=== PATIENT | female | born 2000 | race Caucasian/White ===

== ENCOUNTER 2019-08-15 18:57 | Emergency (ER) | payer MEDICAID, OTHER ==
--- NOTE | 2019-08-15 20:13 | ED ---
Psychiatric Complaint - HPI Summary HPI Summary: Level 5 Caveat AMS This patient is a 18 year old F presenting to [facility] with a chief complaint of suicidal intentions since prior to arrival. Pt tried to hurt herself, and then she called 911. Pt has had similar thought previously and has tried to hurt herself previously. She wanted to stab herself, and she has previously tried stabbing herself with a knife. Pt takes medication, but she does not remember medications, PMHx and allergies. Pt reports throwing up today. Caregiver is in the waiting room. Pt is from a [facility]. - History Of Current Complaint Chief Complaint: EDSuicidal Time Seen by Provider: 08/15/19 19:15 Hx Obtained From: Patient Onset/Duration: Sudden Onset Timing: Intermittent Episode Lasting Aggravating Factor(s): Nothing Alleviating Factor(s): Nothing Has Suicidal: Reports: Thoughts, With A Plan, Has Prior Attempt(s) - Allergies/Home Medications Allergies/Adverse Reactions: Allergies Allergy/AdvReac Type Severity Reaction Status Date / Time No Known Allergies Allergy Verified 08/15/19 22:35 Home Medications: Home Medications ARIPiprazole TAB* 2 mg PO QPM 08/15/19 [History Confirmed 08/15/19] Abilify TAB* 5 mg PO QPM 08/15/19 [History Confirmed 08/15/19] Depakote ER TAB(*) 500 mg PO BID 08/15/19 [History Confirmed 08/15/19] LORazepam 1 mg PO BEDTIME 08/15/19 [History Confirmed 08/15/19] Prazosin CAP* 1 mg PO BEDTIME 08/15/19 [History Confirmed 08/15/19] Sprintec 28 Day Tablet 1 tab PO DAILY 08/15/19 [History Confirmed 08/15/19] Tylenol 650 mg PO Q4HR PRN 08/15/19 [History Confirmed 08/15/19] guanFACINE TAB* 1 mg PO BID 08/15/19 [History Confirmed 08/15/19] risperiDONE 1 mg PO DAILY 08/15/19 [History Confirmed 08/15/19] PMH/Surg Hx/FS Hx/Imm Hx Previously Healthy: No - Level 5 Caveat AMS Sensory History: Denies: Hx Legally Blind EENT History: Denies: Hx Deafness - Surgical History Surgical History: Unable to Obtain/Confirm - Level 5 Caveat AMS Infectious Disease History: No Infectious Disease History: Denies: Traveled Outside the [place] in Last 30 Days - Family History Known Family History: Positive: Unknown - Level 5 Caveat AMS - Social History Occupation: Unemployed Lives: Senior Living - Additional Comments History Additional Comments: Level 5 Caveat AMS Review of Systems Positive: Other - Suicidal All Other Systems Reviewed And Are Negative: No - Comments Additional Review of Systems Comments: Level 5 Caveat AMS Physical Exam - Summary Physical Exam Summary: General: Well-developed, Well-nourished female. No acute distress. HEENT: Normocephalic, Atraumatic. Eyes: Conjuctiva normal, PERRL. Oropharynx: Clear, mucous membranes moist, (-) exudates. Neck: Soft, FROM, (-) lymphadenopathy, (-) thyromegaly, (-) JVD. Cardiovascular: Normal sinus rhythm, (-) murmur. Lungs: Clear to auscultation bilaterally (-) wheezes, (-) rales, (-) rhonchi. Abdomen: Soft, non-tender, non-distended, (-) organomegaly, normal bowel sounds. Back: (-) CVA tenderness Extremities: No edema. Skin: Warm, dry, (-) rash. Neuro: Alert and oriented x3, no focal deficits, poor memory. Psychiatric: Mood normal, affect flat/odd. Level 5 Caveat AMS Triage Information Reviewed: Yes Vital Signs On Initial Exam: Initial Vitals Temp Pulse Resp BP Pulse Ox 99.5 F 80 16 132/86 100 08/15/19 19:01 08/15/19 19:01 08/15/19 19:01 08/15/19 19:01 08/15/19 19:01 Vital Signs Reviewed: Yes Procedures - Sedation Patient Received Moderate/Deep Sedation with Procedure: No Diagnostics - Vital Signs Vital Signs Temp Pulse Resp BP Pulse Ox 08/15/19 19:01 99.5 F 80 16 132/86 100 - Laboratory Result Diagrams: 08/15/19 20:59 08/15/19 20:59 Lab Statement: Any lab studies that have been ordered have been reviewed, and results considered in the medical decision making process. Re-Evaluation - Re-Evaluation First Eval Re-Evaluation Time: 19:51 Comment: Pt was medically cleared. Course/Dx - Course Course Of Treatment: 18-year-old female with learning disability from [facility] presents for mental health evaluation. She states she has been having thoughts of hurting herself. She stated she wanted to take a knife and stab herself. She has had these thoughts before. Patient is poor historian. Limited insight. Patient does states she doesn't want to go back to where she lives and wants to stay here. Patient is medically cleared. Mental health evaluation is completed. Patient is deemed safe for discharge. Discharged back to [facility] with her caregiver. Follow up with outpatient counseling. They'll observe for any worsening symptoms. - Differential Dx/Clinical Impression Provider Diagnosis: Mood disorder - Physician Notifications Discussed Care Of Patient With: Mental Health Liner Assembler Time Discussed With Above Provider: 01:51 Instructed by Provider To: Other - Pt will be discharged Discharge ED - Sign-Out/Discharge Documenting (check all that apply): Patient Departure - Discharge - Discharge Plan Condition: Stable Disposition: HOME Referrals: No Primary Care Phys,NOPCP [Primary Care Provider] - - Billing Disposition and Condition Condition: STABLE Disposition: Home - Attestation Statements Document Initiated by Crisibe: Yes Documenting Scribe: Robyn Waldrop Provider For Whom Ozzie is Documenting (Include Credential): Dr. Iram Morris MD Scribe Attestation: Robyn Pickard scribed for Dr. Iram Morris MD on 08/19/19 at 2000. Scribe Documentation Reviewed: Yes Provider Attestation: The documentation as recorded by the Robyn doll accurately reflects the service I personally performed and the decisions made by me, Dr. Iram Morris MD Status of Scribe Document: Viewed
[2019-08-15 21:07] LABS: ABS Eosinophils 0.2 10^3/ul (0-0.6); ABS Lymphocytes 2.4 10^3/ul (1.0-4.8); ABS Monocytes 0.8 10^3/ul (0-0.8); ABS Neutrophils 5.4 10^3/ul (1.5-7.7); Eosinophil % 1.7 %; Hematocrit 33 % (35-47); Hemoglobin 11.7 g/dL (12.0-16.0); Lymphocyte % 27.3 %; Mean Corpuscular HGB Conc 36 g/dL (31-36); Mean Corpuscular Hemoglobin 33 pg (27-31); Mean Corpuscular Volume 92 fL (80-97); Nucleated Red Blood Cells % 0.1; Platelet Count 271 10^3/uL (150-450); Red Cell Distribution Width 12 % (10-15); White Blood Count 8.8 10^3/uL (3.5-10.8)
[2019-08-15 21:15] LABS: Urine Appearance Clear; Urine Bilirubin Negative (Negative); Urine Blood Negative (Negative); Urine Color Straw; Urine Glucose Negative (Negative); Urine Ketones Negative (Negative); Urine Nitrite Negative (Negative); Urine Protein Negative (Negative); Urine Specific Gravity 1.008 (1.010-1.030); Urine Urobilinogen Negative (Negative)
[2019-08-15 21:25] LABS: ALT 7 U/L (7-52); AST 14 U/L (13-39); Albumin 3.9 g/dL (3.2-5.2); Albumin/Globulin Ratio 1.3 (1-3); Alkaline Phosphatase 53 U/L (34-104); Anion Gap 8 mmol/L (2-11); BUN/Creatinine Ratio 18.2 (8-20); Blood Urea Nitrogen 10 mg/dL (6-24); CO2 Carbon Dioxide 25 mmol/L (22-32); Calcium 9.4 mg/dL (8.6-10.3); Chloride 104 mmol/L (101-111); EGFR African American 172.3 (>60); EGFR Non-African American 142.4 (>60); Glucose 88 mg/dL (70-100); Sodium 137 mmol/L (135-145); Total Protein 6.9 g/dL (6.4-8.9)
[2019-08-15 21:32] LABS: HCG Pregnancy < 0.60 mIU/mL
[2019-08-15 21:33] LABS: Urine Benzodiazepine Screen None Detected (None Detect); Urine Opiates Screen None Detected (None Detect)
[2019-08-15 22:17] LABS: Acetaminophen < 15 mcg/mL; Alcohol < 10 mg/dL (<10); Salicylate < 2.50 mg/dL (<30)
[2019-08-15 22:33] LABS: TSH (Thyroid Stimulating Horm) 3.09 mcIU/mL (0.34-5.60)
[2019-08-16 02:32] VITALS: BP 127/85
== END 2019-08-16 02:20 | disposition home or self-care (01) ==
LOC: ED 18:57
DX: F39 Unspecified mood [affective] disorder (principal); Z79.899 Other long term (current) drug therapy
CPT/HCPCS: 36415; 80053; 80307; 80320; 80329; 81003; 84443; 84702; 85025; 99285; G0480

== ENCOUNTER 2019-08-23 22:36 | Emergency (ER) | payer OTHER ==
--- NOTE | 2019-08-23 22:51 | ED ---
Medical Screening - HPI Summary HPI Summary: Patient brought 941 from [facility] for SI. Stated to staff she wanted to hang herself. Patient states she was angry at staff this evening. Denies any other symptoms, pain or injury. Denies any actual attempt to harm herself prior to arrival in the ED. Denies EtOH or recreational drug use. - History of Current Complaint Chief Complaint: EDMentalHealth Stated Complaint: 941/DIZZINESS PER POLICE Time Seen by Provider: 08/23/19 22:48 Onset/Duration: Started Minutes Ago Severity: moderate PMH/Surg Hx/FS Hx/Imm Hx Endocrine/Hematology History: Denies: Hx Anticoagulant Therapy Cardiovascular History: Denies: Hx Pacemaker/ICD History: Denies: Hx Dialysis Sensory History: Denies: Hx Legally Blind, Hx Deafness Opthamlomology History: Denies: Hx Eye Prosthesis, Hx Legally Blind EENT History: Denies: Hx Auditory Problems Neurological History: Denies: Hx Dementia Psychiatric History: Reports: Hx Bipolar Disorder Denies: Hx Eating Disorder, Hx Depression, Hx Post Traumatic Stress Disorder , Hx Schizophrenia, Hx Suicide Attempt Infectious Disease History: No Infectious Disease History: Denies: Traveled Outside the [place] in Last 30 Days - Family History Known Family History: Positive: Unknown - Level 5 Caveat AMS - Social History Alcohol Use: None Substance Use Type: Reports: None Smoking Status (MU): Never Smoked Tobacco Review of Systems Constitutional: Negative Eyes: Negative ENT: Negative Cardiovascular: Negative Respiratory: Negative Gastrointestinal: Negative Genitourinary: Negative Musculoskeletal: Negative Skin: Negative Neurological: Negative Psychological: Normal All Other Systems Reviewed And Are Negative: Yes Physical Exam Triage Information Reviewed: Yes Vital Signs On Initial Exam: Initial Vitals Temp Pulse Resp BP Pulse Ox 99.3 F 96 18 122/74 99 08/23/19 22:37 08/23/19 22:37 08/23/19 22:37 08/23/19 22:37 08/23/19 22:37 Vital Signs Reviewed: Yes Appearance: Positive: Well-Appearing Skin: Positive: Warm Head/Face: Positive: Normal Head/Face Inspection Eyes: Positive: Normal Neck: Positive: Supple Respiratory/Lung Sounds: Positive: Clear to Auscultation Cardiovascular: Positive: Normal Abdomen Description: Positive: Nontender Musculoskeletal: Positive: Normal Neurological: Positive: Normal Psychiatric: Positive: Normal AVPU Assessment: Alert - Eve Coma Scale Best Eye Response: 4 - Spontaneous Best Motor Response: 6 - Obeys Commands Best Verbal Response: 5 - Oriented Coma Scale Total: 15 Procedures - Sedation Patient Received Moderate/Deep Sedation with Procedure: No Diagnostics - Vital Signs Vital Signs Temp Pulse Resp BP Pulse Ox 08/23/19 22:37 99.3 F 96 18 122/74 99 - Laboratory Result Diagrams: 08/23/19 23:17 08/23/19 23:17 Lab Statement: Any lab studies that have been ordered have been reviewed, and results considered in the medical decision making process. Course/Dx - Course Course Of Treatment: Patient brought 941 from [facility] for SI. Stated to staff she wanted to hang herself. Patient states she was angry at staff this evening. Denies any other symptoms, pain or injury. Denies any actual attempt to harm herself prior to arrival in the ED. Denies EtOH or recreational drug use. Vital signs within normal limits. Labs unremarkable. Mental health evaluation pending. - Diagnoses Provider Diagnoses: Mood disorder Discharge ED - Sign-Out/Discharge Documenting (check all that apply): Sign-Out Patient Signing out patient TO: Harjit Kaufman - Discharge Plan Condition: Stable Disposition: HOME Referrals: No Primary Care Phys,NOPCP [Primary Care Provider] - - Billing Disposition and Condition Condition: STABLE Disposition: Home
[2019-08-23 23:32] LABS: ABS Eosinophils 0.2 10^3/ul (0-0.6); ABS Lymphocytes 2.6 10^3/ul (1.0-4.8); ABS Monocytes 0.9 10^3/ul (0-0.8); ABS Neutrophils 5.4 10^3/ul (1.5-7.7); Eosinophil % 1.8 %; Hematocrit 34 % (35-47); Hemoglobin 12.3 g/dL (12.0-16.0); Lymphocyte % 29.2 %; Mean Corpuscular HGB Conc 37 g/dL (31-36); Mean Corpuscular Hemoglobin 34 pg (27-31); Mean Corpuscular Volume 93 fL (80-97); Nucleated Red Blood Cells % 0.1; Platelet Count 295 10^3/uL (150-450); Red Blood Count 3.63 10^6 /uL (3.70-4.87); Red Cell Distribution Width 12 % (10-15); White Blood Count 9.1 10^3/uL (3.5-10.8)
[2019-08-23 23:47] LABS: ALT 9 U/L (7-52); AST 14 U/L (13-39); Albumin 3.9 g/dL (3.2-5.2); Albumin/Globulin Ratio 1.3 (1-3); Alkaline Phosphatase 57 U/L (34-104); Anion Gap 9 mmol/L (2-11); Blood Urea Nitrogen 12 mg/dL (6-24); CO2 Carbon Dioxide 24 mmol/L (22-32); Calcium 9.3 mg/dL (8.6-10.3); Chloride 105 mmol/L (101-111); EGFR African American 155.8 (>60); EGFR Non-African American 128.8 (>60); Globulin 3.1 g/dL (2-4); Glucose 89 mg/dL (70-100); Potassium 3.9 mmol/L (3.5-5.0); Sodium 138 mmol/L (135-145)
[2019-08-24 00:03] LABS: Acetaminophen < 15 mcg/mL; Alcohol < 10 mg/dL (<10); Salicylate < 2.50 mg/dL (<30)
[2019-08-24 00:18] LABS: TSH (Thyroid Stimulating Horm) 2.28 mcIU/mL (0.34-5.60)
--- NOTE | 2019-08-24 02:49 | ED ---
Progress - Progress Note Progress Note: Patient signed out from DUGLAS Ceballos, upon shift change 08/24/19 02:30 awaiting MHE and pending disposition. Course/Dx - Course Course Of Treatment: MHE completed. Psychiatric sole tacker reviewed case with Dr. Vargas. They recommend discharge. The patient will be discharged. - Diagnoses Provider Diagnoses: Mood disorder - Provider Notifications Time Discussed With Above Provider: 03:27 Discharge ED - Sign-Out/Discharge Documenting (check all that apply): Patient Departure - d/c - Discharge Plan Condition: Stable Disposition: HOME Referrals: No Primary Care Phys,NOPCP [Primary Care Provider] - - Billing Disposition and Condition Condition: STABLE Disposition: Home - Attestation Statements Document Initiated by Scribe: Yes Documenting Scribe: Rachel Mayorga Provider For Whom Ozzie is Documenting (Include Credential): Harjit Kaufman MD Scribstorm Attestation: Rachel Pickard, scribed for Harjit Kaufman MD on 08/24/19 at 0545. Scribe Documentation Reviewed: Yes Provider Attestation: The documentation as recorded by the Rachel doll accurately reflects the service I personally performed and the decisions made by Harjit triplett MD Status of Scribe Document: Viewed
[2019-08-24 04:41] VITALS: BP 101/57
== END 2019-08-24 03:20 | disposition home or self-care (01) ==
LOC: ED 22:36
DX: F39 Unspecified mood [affective] disorder (principal); R45.851 Suicidal ideations; Z79.899 Other long term (current) drug therapy
CPT/HCPCS: 36415; 80053; 80320; 80329; 84443; 85025; 99285; G0480

== ENCOUNTER 2019-09-12 17:52 | Emergency (ER) | payer OTHER ==
--- NOTE | 2019-09-12 18:11 | ED ---
Psychiatric Complaint - HPI Summary HPI Summary: The patient is a 19 y/o F brought in by police to [facility] with a chief complaint of suicidality today. She threatened to cut herself after someone agitated her at the living facility. She reports that she has been feeling like she is going to commit suicide, but she does not state a plan in the ED. She is medication- compliant. She also notes right thigh pain secondary to a fall she had at home. She has been unable to ambulate on the RLE. No pain in LLE. She endorses nausea now from the ride here. PMHx: bipolar disorder. Nonsmoker, no EtOH, no substance use. Medications reviewed. Allergies noted. - History Of Current Complaint Chief Complaint: EDSuicidal Time Seen by Provider: 09/12/19 18:00 Hx Obtained From: Patient Onset/Duration: Still Present Severity Initially: Moderate Severity Currently: Moderate Character: Depressed, Frustrated Aggravating Factor(s): Recent Stress Alleviating Factor(s): Nothing Related History: Positive For: Prior Psychiatric Issues - bipolar disorder Has Suicidal: Reports: Thoughts - Allergies/Home Medications Allergies/Adverse Reactions: Allergies Allergy/AdvReac Type Severity Reaction Status Date / Time No Known Allergies Allergy Verified 08/23/19 22:42 PMH/Surg Hx/FS Hx/Imm Hx Endocrine/Hematology History: Denies: Hx Anticoagulant Therapy Cardiovascular History: Denies: Hx Pacemaker/ICD History: Denies: Hx Dialysis Sensory History: Denies: Hx Eye Prosthesis, Hx Legally Blind, Hx Deafness Opthamlomology History: Denies: Hx Eye Prosthesis, Hx Legally Blind Neurological History: Denies: Hx Dementia Psychiatric History: Reports: Hx Bipolar Disorder Denies: Hx Eating Disorder, Hx Depression, Hx Post Traumatic Stress Disorder , Hx Schizophrenia, Hx Suicide Attempt Infectious Disease History: No Infectious Disease History: Denies: Traveled Outside the [place] in Last 30 Days - Family History Known Family History: Negative: Diabetes - Social History Alcohol Use: None Hx Substance Use: No Substance Use Type: Reports: None Substance Use Comment - Amount & Last Used: n/a Hx Tobacco Use: No Smoking Status (MU): Never Smoked Tobacco Review of Systems Positive: Myalgia - right thigh Positive: Depressed, Other - SI All Other Systems Reviewed And Are Negative: Yes Physical Exam - Summary Physical Exam Summary: Constitutional: Well-developed, Well-nourished, Alert. (-) Distressed Skin: Warm, Dry HENT: Normocephalic; Atraumatic Eyes: Conjunctiva normal Neck: Musculoskeletal ROM normal neck. (-) JVD, (-) Stridor, (-) Nuchal rigidity Cardio: Rhythm regular, rate normal, Heart sounds normal; Intact distal pulses; Radial pulses are 2+ and symmetric. (-) Murmur Pulmonary/Chest wall: Effort normal. (-) Respiratory distress, (-) Wheezes, (-) Rales Abd: Soft, (-) tenderness, (-) Distension, (-) Guarding, (-) Rebound Musculoskeletal: (-) Edema Lymph: (-) Cervical adenopathy Neuro: Alert, Oriented x3 Psych: Mood and affect Normal Triage Information Reviewed: Yes Vital Signs On Initial Exam: Initial Vitals Temp Pulse Resp BP Pulse Ox 98.0 F 84 18 130/75 99 09/12/19 17:53 09/12/19 17:53 09/12/19 17:53 09/12/19 17:53 09/12/19 17:53 Vital Signs Reviewed: Yes Procedures - Sedation Patient Received Moderate/Deep Sedation with Procedure: No Diagnostics - Vital Signs Vital Signs Temp Pulse Resp BP Pulse Ox 09/12/19 17:53 98.0 F 84 18 130/75 99 - Laboratory Lab Statement: Any lab studies that have been ordered have been reviewed, and results considered in the medical decision making process. - Radiology R Knee XR Radiology Interpretation Completed By: ED Physician Summary of Radiographic Findings: No acute fracture. ED physician has reviewed and interpreted this report. Pending official read. R Femur XR Radiology Interpretation Completed By: ED Physician Summary of Radiographic Findings: No acute fracture. ED physician has reviewed and interpreted this report. Pending official read. Re-Evaluation - Re-Evaluation First Eval Re-Evaluation Time: 18:15 Comment: Patient is medically clear for MHE. Second Eval Re-Evaluation Time: 20:42 Comment: Discussed results with patient including normal XRays. Patient ambulated Course/Dx - Course Course Of Treatment: 19 y/o F w hx BPD p/w SI and R leg pain. - PE w mild R knee/thigh tenderness. Will check films as patient doesnt want to ambulate. - team to evaluate. - Differential Dx/Clinical Impression Provider Diagnosis: Mood disorder, Thigh pain - Physician Notifications Discussed Care Of Patient With: Napoleon Swartz - psychiatry Time Discussed With Above Provider: 20:30 Instructed by Provider To: Other - Dr. Swartz has evaluated the patient and has determined that she is able to be discharged home. Discharge ED - Sign-Out/Discharge Documenting (check all that apply): Patient Departure - Patient will be discharged by [facility]. - Discharge Plan Condition: Stable Disposition: HOME Patient Education Materials: Mood Disorders (ED), Musculoskeletal Pain (ED) Referrals: No Primary Care Phys,NOPCP [Primary Care Provider] - Additional Instructions: Your Xray did not show any acute fractures. - Billing Disposition and Condition Condition: STABLE Disposition: Home - Attestation Statements Document Initiated by Ozzie: Yes Documenting Scribe: Shanthi Curry Provider For Whom Ozzie is Documenting (Include Credential): Dr. Carlos Palma MD Scribe Attestation: Shanthi Pickard scribed for Dr. Carlos Palma MD on 09/13/19 at 1003. Scribe Documentation Reviewed: Yes Provider Attestation: The documentation as recorded by the Shanthi doll accurately reflects the service I personally performed and the decisions made by me, Dr. Carlos Palma MD Status of Scribe Document: Viewed
[2019-09-12] MEDS ORDERED: Acetaminophen TAB* 325 MG PO ONE (20:36)
[2019-09-12] MEDS ORDERED: Divalproex DR TAB(*) 500 MG PO ONE (20:44)
[2019-09-12] MEDS ORDERED: ARIPiprazole TAB* 5 MG PO ONE (21:00)
[2019-09-12 21:12] VITALS: BP 116/74
== END 2019-09-12 21:11 | disposition home or self-care (01) ==
LOC: ED 17:52
DX: F39 Unspecified mood [affective] disorder (principal); F32.9 Major depressive disorder, single episode, unspecified; M79.651 Pain in right thigh
CPT/HCPCS: 99285; A9270-GY

== ENCOUNTER 2019-10-17 17:21 | Emergency (ER) | payer OTHER ==
[2019-10-17 18:32] LABS: ABS Eosinophils 0.2 10^3/ul (0-0.6); ABS Lymphocytes 2.3 10^3/ul (1.0-4.8); ABS Monocytes 0.6 10^3/ul (0-0.8); ABS Neutrophils 3.4 10^3/ul (1.5-7.7); Eosinophil % 2.7 %; Hematocrit 36 % (35-47); Hemoglobin 12.5 g/dL (12.0-16.0); Lymphocyte % 35.6 %; Mean Corpuscular HGB Conc 35 g/dL (31-36); Mean Corpuscular Hemoglobin 33 pg (27-31); Mean Corpuscular Volume 94 fL (80-97); Mean Platelet Volume 8.3 fL (7.4-10.4); Nucleated Red Blood Cells % 0.1; Platelet Count 237 10^3/uL (150-450); Red Blood Count 3.81 10^6 /uL (3.70-4.87); Red Cell Distribution Width 13 % (10-15); White Blood Count 6.6 10^3/uL (3.5-10.8)
[2019-10-17 18:50] LABS: ALT 9 U/L (7-52); AST 14 U/L (13-39); Albumin 3.9 g/dL (3.2-5.2); Albumin/Globulin Ratio 1.3 (1-3); Alkaline Phosphatase 51 U/L (34-104); Anion Gap 6 mmol/L (2-11); Blood Urea Nitrogen 11 mg/dL (6-24); C Reactive Protein 3.68 mg/L (<8.01); CO2 Carbon Dioxide 26 mmol/L (22-32); Calcium 8.9 mg/dL (8.6-10.3); Chloride 109 mmol/L (101-111); EGFR African American 160.4 (>60); EGFR Non-African American 132.5 (>60); Globulin 2.9 g/dL (2-4); Glucose 99 mg/dL (70-100); Potassium 3.6 mmol/L (3.5-5.0); Sodium 141 mmol/L (135-145); Total Protein 6.8 g/dL (6.4-8.9)
[2019-10-17 18:57] LABS: HCG Pregnancy < 0.60 mIU/mL
[2019-10-17] MEDS ORDERED: Ketorolac INJ* 30 MG/ML 1 ML VIAL IM ONE (19:38)
--- NOTE | 2019-10-17 19:41 | ED ---
Head Injury - HPI Summary HPI Summary: 19 year old female presents with head injury today. She says she hit her head on a chair. She denies LOC or change in vision. Denies any dizziness. She admits to some nausea but no vomiting. she is not on any blood thinners. Denies any neck pain. States that when she with EMS she developed chest pain. pain is located in the center chest. States it is sharp in nature. chest pain is reproducible. No shortness of breath. No recent illness. No cough. No fevers. - History Of Current Complaint Chief Complaint: EDHeadInjury Stated Complaint: FALL/HEAD INJURY PER PT Time Seen by Provider: 10/17/19 17:40 Pain Intensity: 10 - Allergies/Home Medications Allergies/Adverse Reactions: Allergies Allergy/AdvReac Type Severity Reaction Status Date / Time No Known Allergies Allergy Verified 08/23/19 22:42 PMH/Surg Hx/FS Hx/Imm Hx Endocrine/Hematology History: Denies: Hx Anticoagulant Therapy, Hx Diabetes Cardiovascular History: Denies: Hx Hypercholesterolemia, Hx Hypertension, Hx Pacemaker/ICD History: Denies: Hx Dialysis, Hx Renal Disease Sensory History: Denies: Hx Eye Prosthesis, Hx Legally Blind, Hx Deafness Opthamlomology History: Denies: Hx Eye Prosthesis, Hx Legally Blind Neurological History: Denies: Hx Dementia Psychiatric History: Reports: Hx Bipolar Disorder Denies: Hx Eating Disorder, Hx Depression, Hx Post Traumatic Stress Disorder , Hx Schizophrenia, Hx Suicide Attempt - Surgical History Surgery Procedure, Year, and Place: None Infectious Disease History: No Infectious Disease History: Denies: Traveled Outside the [place] in Last 30 Days - Family History Known Family History: Positive: Unknown - Level 5 Caveat AMS Negative: Diabetes - Social History Alcohol Use: None Hx Substance Use: No Substance Use Type: Reports: None Substance Use Comment - Amount & Last Used: n/a Hx Tobacco Use: No Smoking Status (MU): Never Smoked Tobacco Review of Systems Negative: Fever Positive: Chest Pain Negative: Shortness Of Breath Positive: Nausea. Negative: Vomiting Positive: Headache All Other Systems Reviewed And Are Negative: Yes Physical Exam Triage Information Reviewed: Yes Vital Signs On Initial Exam: Initial Vitals Temp Pulse Resp BP Pulse Ox 98.6 F 72 16 130/89 97 10/17/19 17:24 10/17/19 17:24 10/17/19 17:24 10/17/19 17:24 10/17/19 17:24 Vital Signs Reviewed: Yes Appearance: Positive: Well-Appearing Skin: Positive: Warm, Dry Head/Face: Positive: Normal Head/Face Inspection, Other - no step off, racoon eyes, velasquez sign Eyes: Positive: Normal, EOMI, DEEPIKA, Conjunctiva Clear ENT: Positive: Pharynx normal, TMs normal Neck: Positive: Other: - nontender neck Respiratory/Lung Sounds: Positive: Clear to Auscultation, Breath Sounds Present , Other - reproducible chest pain Cardiovascular: Positive: Normal, RRR Abdomen Description: Positive: Nontender, Soft Bowel Sounds: Positive: Present Musculoskeletal: Positive: Normal Neurological: Positive: Normal Psychiatric: Positive: Normal Procedures - Sedation Patient Received Moderate/Deep Sedation with Procedure: No Diagnostics - Vital Signs Vital Signs Temp Pulse Resp BP Pulse Ox 10/17/19 18:43 68 18 130/78 99 10/17/19 18:15 60 20 99 10/17/19 18:13 72 22 136/84 98 10/17/19 17:24 98.6 F 72 16 130/89 97 - Laboratory Lab Results: Lab Results 10/17/19 10/17/19 10/17/19 Range/Units 18:22 18:22 18:22 WBC 6.6 (3.5-10.8) 10^3/uL RBC 3.81 (3.70-4.87) 10^6 /uL Hgb 12.5 (12.0-16.0) g/dL Hct 36 (35-47) % MCV 94 (80-97) fL MCH 33 H (27-31) pg MCHC 35 (31-36) g/dL RDW 13 (10-15) % Plt Count 237 (150-450) 10^3/uL MPV 8.3 (7.4-10.4) fL Neut % (Auto) 52.3 % Lymph % (Auto) 35.6 % Meagher % (Auto) 8.8 % Eos % (Auto) 2.7 % Baso % (Auto) 0.6 % Absolute Neuts (auto) 3.4 (1.5-7.7) 10^3/ul Absolute Lymphs (auto) 2.3 (1.0-4.8) 10^3/ul Absolute Monos (auto) 0.6 (0-0.8) 10^3/ul Absolute Eos (auto) 0.2 (0-0.6) 10^3/ul Absolute Basos (auto) 0.0 (0-0.2) 10^3/ul Absolute Nucleated RBC 0.0 10^3/ul Nucleated RBC % 0.1 Sodium 141 (135-145) mmol/L Potassium 3.6 (3.5-5.0) mmol/L Chloride 109 (101-111) mmol/L Carbon Dioxide 26 (22-32) mmol/L Anion Gap 6 (2-11) mmol/L BUN 11 (6-24) mg/dL Creatinine 0.58 (0.51-0.95) mg/dL Est GFR ( Amer) 160.4 (>60) Est GFR (Non-Af Amer) 132.5 (>60) BUN/Creatinine Ratio 19.0 (8-20) Glucose 99 (70-100) mg/dL Lactic Acid 1.1 (0.5-2.0) mmol/L Calcium 8.9 (8.6-10.3) mg/dL Total Bilirubin 0.20 (0.2-1.0) mg/dL AST 14 (13-39) U/L ALT 9 (7-52) U/L Alkaline Phosphatase 51 (34-104) U/L Troponin I 0.00 (<0.03) ng/mL C-Reactive Protein 3.68 (<8.01) mg/L Total Protein 6.8 (6.4-8.9) g/dL Albumin 3.9 (3.2-5.2) g/dL Globulin 2.9 (2-4) g/dL Albumin/Globulin Ratio 1.3 (1-3) Beta HCG, Quant < 0.60 mIU/mL Result Diagrams: 10/17/19 18:22 10/17/19 18:22 Lab Statement: Any lab studies that have been ordered have been reviewed, and results considered in the medical decision making process. - Radiology chest Radiology Interpretation Completed By: ED Physician Summary of Radiographic Findings: no active disease - EKG No standard instances Cardiac Rate: NL EKG Rhythm: Sinus Rhythm Summary of EKG Findings: sinus arrhythmia Re-Evaluation - Re-Evaluation First Eval Comment: when discussed going home patient became upset Head Injury Course/Dx Course Of Treatment: 19 year old female presents with head injury today. She says she hit her head on a chair. She denies LOC or change in vision. Denies any dizziness. She admits to some nausea but no vomiting. she is not on any blood thinners. Denies any neck pain. States that when she with EMS she developed chest pain. pain is located in the center chest. States it is sharp in nature. chest pain is reproducible. No shortness of breath. No recent illness. No cough. No fevers. On exam has normal neuro exam. No neuro deficits noted. according to [place] rules does not need any head imaging. reproducible chest pain. EKG shows sinus arrhythmia. Troponins zero. Gave Toradol. Will have follow with primary. Patient understands and agrees with the plan. - Diagnoses Differential Diagnosis/HQI/PQRI: Concussion Without LOC, Contusion, Intracranial Bleed Provider Diagnoses: Head injury, Chest wall pain Discharge ED - Sign-Out/Discharge Documenting (check all that apply): Patient Departure - Discharge Plan Condition: Good Disposition: HOME Patient Education Materials: Head Injury (ED), Chest Wall Pain (ED) Referrals: [facility] [Outside] Additional Instructions: Place ice on area as needed Take Tylenol or ibuprofen for headache every 6 hours Modify activities as tolerated establish care with primary Return to ED if develop any new or worsening symptoms - Billing Disposition and Condition Condition: GOOD Disposition: Home - Attestation Statements Provider Attestation: I was available for consult. This patient was seen by the [facility]NA. The patient was not presented to, seen by, or examined by me. Garrison Jorgensen MD
[2019-10-17 20:22] VITALS: BP 110/75
== END 2019-10-17 20:21 | disposition home or self-care (01) ==
LOC: ED 17:21
DX: S09.90XA Unspecified injury of head, initial encounter (principal); R07.89 Other chest pain; W22.8XXA Striking against or struck by other objects, initial encounter; Y92.9 Unspecified place or not applicable; F31.9 Bipolar disorder, unspecified
CPT/HCPCS: 36415; 71045; 80053; 83605; 84484; 84702; 85025; 86140; 93005; 96372; 99285; J1885

== ENCOUNTER 2019-10-18 08:43 | Emergency (ER) | payer OTHER ==
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
[2019-10-18] MEDS ORDERED: Sucralfate TAB* 1 GM PO ONE (09:26)
[2019-10-18 09:36] LABS: ABS Eosinophils 0.1 10^3/ul (0-0.6); ABS Lymphocytes 1.6 10^3/ul (1.0-4.8); ABS Monocytes 0.5 10^3/ul (0-0.8); Eosinophil % 1.9 %; Hematocrit 36 % (35-47); Hemoglobin 12.7 g/dL (12.0-16.0); Lymphocyte % 30.8 %; Mean Corpuscular HGB Conc 36 g/dL (31-36); Mean Corpuscular Hemoglobin 33 pg (27-31); Mean Corpuscular Volume 94 fL (80-97); Mean Platelet Volume 8.3 fL (7.4-10.4); Platelet Count 228 10^3/uL (150-450); Red Cell Distribution Width 13 % (10-15); White Blood Count 5.2 10^3/uL (3.5-10.8)
[2019-10-18 09:52] LABS: ALT 10 U/L (7-52); AST 15 U/L (13-39); Albumin 3.9 g/dL (3.2-5.2); Albumin/Globulin Ratio 1.3 (1-3); Alkaline Phosphatase 53 U/L (34-104); Anion Gap 7 mmol/L (2-11); BUN/Creatinine Ratio 17.2 (8-20); Blood Urea Nitrogen 10 mg/dL (6-24); CO2 Carbon Dioxide 25 mmol/L (22-32); Chloride 109 mmol/L (101-111); EGFR African American 160.4 (>60); EGFR Non-African American 132.5 (>60); Globulin 2.9 g/dL (2-4); Glucose 84 mg/dL (70-100); Sodium 141 mmol/L (135-145); Total Protein 6.8 g/dL (6.4-8.9)
[2019-10-18 09:58] LABS: Acetaminophen < 15 mcg/mL; Alcohol < 10 mg/dL (<10); Salicylate < 2.50 mg/dL (<30)
[2019-10-18 09:59] LABS: HCG Pregnancy < 0.60 mIU/mL
[2019-10-18 10:01] LABS: Urine Appearance Cloudy; Urine Bilirubin Negative (Negative); Urine Blood 2+ (Negative); Urine Color Yellow; Urine Glucose Negative (Negative); Urine Ketones Trace (Negative); Urine Nitrite Negative (Negative); Urine Protein Negative (Negative); Urine Specific Gravity 1.016 (1.010-1.030); Urine Urobilinogen Negative (Negative)
[2019-10-18 10:03] LABS: Urine Bacteria Absent (Absent); Urine Red Blood Cell Trace(0-2/hpf) (Absent); Urine Squamous Epithelial Cell Present (Absent); Urine White Blood Cell Trace(0-5/hpf) (Absent)
[2019-10-18 10:08] LABS: Urine Benzodiazepine Screen None Detected (None Detect); Urine Opiates Screen None Detected (None Detect)
[2019-10-18 10:13] LABS: TSH (Thyroid Stimulating Horm) 1.52 mcIU/mL (0.34-5.60)
[2019-10-18 15:14] VITALS: BP 126/75
== END 2019-10-18 15:10 | disposition home or self-care (01) ==
LOC: ED 08:43
DX: F39 Unspecified mood [affective] disorder (principal); F31.9 Bipolar disorder, unspecified
CPT/HCPCS: 36415; 80053; 80307; 80320; 80329; 81003; 81015; 84443; 84702; 85025; 87086; 99285; A9270-GY; G0480